=== PATIENT | female | born 1965 | race Caucasian/White ===

== ENCOUNTER → 2024-05-10 | Outpatient (CLI) | payer BC ==
[2024-05-10 11:00] LABS: WBC 7.05 X 10*3/uL (4.50-10.00)
[2024-05-10 11:01] LABS: Basophils # (A) 0.14 X 10*3/uL (0.00-0.10); Eosinophils # (A) 0.26 X 10*3/uL (0.04-0.35); Eosinophils % (A) 3.7 %; HGB 15.2 g/dL (12.0-15.0); Lymphocytes # (A) 2.62 X 10*3/uL (0.90-5.00); Lymphocytes % (A) 37.2 %; MCH 31.5 pg (27.0-32.0); MCV 95.2 FL (80.0-97.0); Mean Platelet Volume 10.1 FL (9.5-12.2); Monocytes # (A) 0.46 X 10*3/uL (0.20-1.00); Monocytes % (A) 6.5 %; NRBC Per 100 WBC 0 X 10*3/uL (0.00-0.01); Neutrophils # (A) 3.55 X 10*3/uL (1.80-7.70); Neutrophils % (A) 50.3 %; Platelet Count 263 X 10*3/uL (140-440); RBC 4.83 X 10*6/uL (4.10-5.20); RDW 11.5 % (11.5-14.5)
[2024-05-10 11:29] LABS: ALT 20 U/L (8-44); AST 19 U/L (13-35); Albumin 5.2 g/dL (3.8-4.9); Albumin/Globulin Ratio 2.08 Ratio (1.60-3.17); Alkaline Phosphatase 85 U/L (41-126); BUN/Creat Ratio 19.71 Ratio (12.00-20.00); Blood Urea Nitrogen 13.8 mg/dL (9.0-27.0); Chloride 101 mmol/L (96-109); Chol/HDL Ratio 4.62 Ratio; Globulin 2.5 g/dL (1.6-3.3); Glucose 112 mg/dL (70-110); LDL Cholesterol,Calculated 195.6 mg/dL (0.0-131.0); Potassium 4.2 mmol/L (3.5-5.5); Sodium 139 mmol/L (135-145); T4, Free (Free Thyroxine) 1.49 ng/dL (0.80-1.80); Total Bilirubin 0.3 mg/dL (0.3-1.2); Total Protein 7.7 g/dL (6.2-8.2)
== END | disposition home or self-care (01) ==
LOC: LABWHC1 07:20
PROVIDERS: ATTEND Family Medicine
DX: R53.83 Other fatigue (principal); R68.89 Other general symptoms and signs; R79.89 Other specified abnormal findings of blood chemistry
CPT/HCPCS: 36415; 80053; 80061; 83036; 84439; 84443; 85025

== ENCOUNTER → 2024-06-02 | Outpatient (CLI) | payer BC ==
--- NOTE | 2024-06-06 15:01 | MM ---
Reason for Exam: Screening (asymptomatic). Last mammogram was performed 1 year(s) and 3 month(s) ago. Patient History: Menarche at age 15. First Full-Term at age 28. Left ovary removed at age 50. Right ovary removed at age 50. Hysterectomy at age 50. Postmenopausal. 06/08/2013, Bilateral Reduction. Paternal aunt had breast cancer. Risk Values: Jane 5 year model risk: 1.4%. NCI Lifetime model risk: 8.9%. Prior Study Comparison: 06/05/2020 Bilateral Screening Mammogram, Jagdish Cole. 11/12/2021 Bilateral Screening Mammogram, Jagdish Cole. 02/24/2023 Bilateral Screening Mammogram, Jagdish Cole. Tissue Density: There are scattered areas of fibroglandular density. Findings: Analyzed By CAD. There is some distortion with calcification within the posterior right breast. No significant interval change. No suspicious groups of microcalcifications, spiculated or lobular masses, architectural distortion or other secondary signs of malignancy are mammographically apparent. Overall Assessment: Benign, BI-RAD 2 Management: Screening Mammogram of both breasts in 1 year. A negative mammogram report should not preclude additional follow up of suspicious palpable abnormalities. Patient should continue monthly self breast exam. A clinical breast exam by your physician is recommended on an annual basis and results should be correlated with mammographic findings. Note on Jane scores and lifetime risk: 1. A Jane score greater than 3% is considered moderate risk. If this is the case, consider specialist referral to assess eligibility for a risk reducing agent. 2. If overall lifetime risk for the development of breast cancer is 20% or higher, the patient may qualify for future screening with alternating mammogram and breast MRI. Electronically signed and approved by: Gallo Zayas D.O. Radiologis
== END | disposition home or self-care (01) ==
LOC: RADMAMWWP 09:07
PROVIDERS: ATTEND Family Medicine
DX: Z12.31 Encounter for screening mammogram for malignant neoplasm of breast (principal); Z78.0 Asymptomatic menopausal state; Z80.3 Family history of malignant neoplasm of breast; R92.323 Mammographic fibroglandular density, bilateral breasts
CPT/HCPCS: 77063; 77067

== ENCOUNTER → 2024-12-02 | Outpatient (CLI) | payer BC ==
[2024-12-02 10:37] LABS: ALT 40 U/L (8-44); AST 25 U/L (13-35); Chol/HDL Ratio 2.84 Ratio; LDL Cholesterol,Calculated 83.8 mg/dL (0.0-131.0)
== END | disposition home or self-care (01) ==
LOC: RADXRMAIN 06:49
PROVIDERS: ATTEND Family Medicine
DX: E78.5 Hyperlipidemia, unspecified (principal)
CPT/HCPCS: 36415; 80061; 84450; 84460

== ENCOUNTER 2025-01-11 15:36 | Emergency (ER) | payer BC ==
[2025-01-11 15:46] VITALS: TEMP 97.4
--- NOTE | 2025-01-11 16:22 | ED ---
General Adult HPI - General Chief complaint: Recheck/Abnormal Lab/Rx Stated complaint: htn Time Seen by Provider: 01/11/25 16:09 Source: patient, RN notes reviewed Mode of arrival: ambulatory Limitations: no limitations - History of Present Illness Initial comments: Patient is a 59-year-old female present to the emergency department with concern for high blood pressure. Patient has felt shaky today. Patient does have a headache which was gradual onset and has progressed over the past few hours. Headache is rated a 6/10. Patient has mild photophobia. Patient took her blood pressure several times and has been high. Patient was at urgent care and advised to take an additional dose of her losartan 50 however she did not do that. Blood pressure at home again with her cough was 160/92. - Related Data Home Medications Medication Instructions Recorded Confirmed Atorvastatin [Lipitor] 20 mg PO HS 01/11/25 01/11/25 Ergocalciferol (Vitamin D2) 1,250 mcg PO WE 01/11/25 01/11/25 [Drisdol (50,000 Iu)] Levothyroxine Sodium [Synthroid] 100 mcg PO [id number] 01/11/25 01/11/25 Levothyroxine Sodium [Synthroid] 150 mcg PO LOZA 01/11/25 01/11/25 Olmesartan [Benicar] 20 mg PO DAILY 01/11/25 01/11/25 Allergies Allergy/AdvReac Type Severity Reaction Status Date / Time cefuroxime [From Ceftin] AdvReac Rash/Hives Verified 01/11/25 17:45 codeine AdvReac Nausea & Verified 01/11/25 17:45 Vomiting Review of Systems ROS Statement: Those systems with pertinent positive or pertinent negative responses have been documented in the HPI. ROS Other: All systems not noted in ROS Statement are negative. Constitutional: Denies: fever Eyes: Denies: eye pain ENT: Denies: ear pain Respiratory: Denies: cough Cardiovascular: Denies: chest pain Endocrine: Denies: fatigue Gastrointestinal: Denies: abdominal pain Neurological: Reports: as per HPI, headache. Denies: weakness Past Medical History Past Medical History: Hyperlipidemia, Hypertension, Thyroid Disorder Additional Past Medical History / Comment(s): heart murmur History of Any Multi-Drug Resistant Organisms: None Reported Past Surgical History: Breast Surgery, Cholecystectomy, Hysterectomy, Tonsillectomy Past Psychological History: No Psychological Hx Reported Smoking Status: Never smoker Past Alcohol Use History: Occasional Past Drug Use History: None Reported General Exam Limitations: no limitations General appearance: alert, in no apparent distress Head exam: Present: atraumatic, normocephalic Eye exam: Present: normal appearance, PERRL, EOMI ENT exam: Present: normal oropharynx Neck exam: Present: normal inspection Respiratory exam: Present: normal lung sounds bilaterally Cardiovascular Exam: Present: regular rate, normal rhythm, normal heart sounds Expanded Peripheral pulses: 2+: Radial (R), Radial (L), Posterior Tibialis (R), Posterior Tibialis (L) GI/Abdominal exam: Present: soft. Absent: tenderness Extremities exam: Present: normal inspection. Absent: pedal edema, calf tenderness Neurological exam: Present: alert, CN II-XII intact. Absent: motor sensory deficit Expanded Neurological exam: Present: protecting the airway Speech: Present: fluid speech Cranial nerves: EOM's Intact: Normal Sensory exam: Upper Extremity Light Touch: Normal, Lower Extremity Light Touch: Normal Motor strength exam: RUE: 5, LUE: 5, RLE: 5, LLE: 5 Eye Response: (4) open spontaneously Motor Response: (6) obeys commands Verbal Response: (5) oriented Psychiatric exam: Present: normal affect, normal mood Skin exam: Present: normal color Course Vital Signs 01/11/25 01/11/25 01/11/25 15:41 16:46 17:36 Temperature 97.4 F L Pulse Rate 82 74 85 Respiratory 18 16 18 Rate Blood Pressure 191/113 141/104 144/104 O2 Sat by Pulse 98 97 98 Oximetry 01/11/25 18:00 Temperature Pulse Rate 68 Respiratory 16 Rate Blood Pressure 149/99 O2 Sat by Pulse 99 Oximetry EKG Findings - EKG Results: EKG: interpreted by ERMD, sinus rhythm, normal axis, normal QRS, normal ST/T Medical Decision Making - Medical Decision Making Was pt. sent in by a medical professional or institution (Dr. PA, RESOURCE MANAGEMENT PLANNER, urgent care, hospital, or shelter...) When possible be specific @ -Patient presented after urgent care Did you speak to anyone other than the patient for history (EMS, parent, family, police, friend...)? What history was obtained from this source @ -No Did you review nursing and triage notes (agree or disagree)? Why? @ -I reviewed and agree with nursing and triage notes Were old charts reviewed (outside hosp., previous admission, EMS record, old EKG, old radiological studies, urgent care reports/EKG's, shelter records)? Report findings @ -No old charts were reviewed Differential Diagnosis (chest pain, altered mental status, abdominal pain women, abdominal pain men, vaginal bleeding, weakness, fever, dyspnea, syncope, he adache, dizziness, GI bleed, back pain, seizure, CVA, palpatations, mental health, musculoskeletal)? @ -Differential Dizziness: Benign paroxysmal positional Vertigo, Meniere's disease, otitis media, acoustic neuroma, vertebrobasilar insufficiency, cerebellar stroke, encephalitis, hypovolemic, arrhythmia, coronary artery syndrome, anemia, this is not meant to be an all-inclusive list EKG interpreted by me (3pts min.). @ -As above X-rays interpreted by me (1pt min.). @ -Chest x-ray shows no acute process CT interpreted by me (1pt min.). @ -None done U/S interpreted by me (1pt. min.). @ -None done What testing was considered but not performed or refused? (CT, X-rays, U/S, labs)? Why? @ -None What meds were considered but not given or refused? Why? @ -None Did you discuss the management of the patient with other professionals (professionals i.e. , PA, RESOURCE MANAGEMENT PLANNER, lab, RT, psych nurse, sexual assault social worker, superintendent pier, teacher, medical laboratory technical officer, watch case polisher)? Give summary @ -No Was smoking cessation discussed for >3mins.? @ -No Was critical care preformed (if so, how long)? @ -No Were there social determinants of health that impacted care today? How? (Homelessness, low income, unemployed, alcoholism, drug addiction, transportation, low edu. Level, literacy, decrease access to med. care, custodial, rehab)? @ -No Was there de-escalation of care discussed even if they declined (Discuss DNR or withdrawal of care, Hospice)? DNR status @ -No What co-morbidities impacted this encounter? (DM, HTN, Smoking, COPD, CAD, Cancer, CVA, ARF, Chemo, Hep., AIDS, mental health diagnosis, sleep apnea, mor bid obesity)? @ -History of hypertension Was patient admitted / discharged? Hospital course, mention meds given and route, prescriptions, significant lab abnormalities, going to OR and other pertinent info. @ -Patient presents with hypertension and had some shakiness earlier. Patient felt better after Ativan however blood pressure remains somewhat elevated. Patient given 1 dose of 1.25 Vasotec with repeat blood pressure 106/91. Patient remained symptom-free on reevaluation. Patient and family updated. Undiagnosed new problem with uncertain prognosis? @ -No Drug Therapy requiring intensive monitoring for toxicity (Heparin, Nitro, Insulin, Cardizem)? @ -No Were any procedures done? @ -No Diagnosis/symptom? @ -Hypertension Acute, or Chronic, or Acute on Chronic? @ -Acute on chronic Uncomplicated (without systemic symptoms) or Complicated (systemic symptoms)? @ -Default Side effects of treatment? @ -No Exacerbation, Progression, or Severe Exacerbation? @ -No Poses a threat to life or bodily function? How? (Chest pain, [place], [place], pneumonia, PE, COPD, DKA, ARF, appy, cholecystitis, CVA, Diverticulitis, Homicidal, Suicidal, threat to staff... and all critical care pts) @ -No - Lab Data Result diagrams: 01/11/25 16:25 01/11/25 16:25 Lab Results 01/11/25 01/11/25 01/11/25 Range/Units 16:25 16:25 16:25 WBC 9.0 (3.8-10.6) k/uL RBC 4.76 (3.80-5.40) m/uL Hgb 14.6 (11.4-16.0) gm/dL Hct 45.2 (34.0-46.0) % MCV 95.0 (80.0-100.0) fL MCH 30.7 (25.0-35.0) pg MCHC 32.3 (31.0-37.0) g/dL RDW 11.9 (11.5-15.5) % Plt Count 261 (150-450) k/uL MPV 7.0 Neutrophils % 62 % Lymphocytes % 27 % Monocytes % 5 % Eosinophils % 4 % Basophils % 1 % Neutrophils # 5.6 (1.3-7.7) k/uL Lymphocytes # 2.4 (1.0-4.8) k/uL Monocytes # 0.4 (0-1.0) k/uL Eosinophils # 0.3 (0-0.7) k/uL Basophils # 0.1 (0-0.2) k/uL PT 10.7 (10.0-12.5) sec INR 1.0 (<1.2) Sodium 139 (137-145) mmol/L Potassium 4.0 (3.5-5.1) mmol/L Chloride 102 (98-107) mmol/L Carbon Dioxide 26 (22-30) mmol/L Anion Gap 11 mmol/L BUN 19 H (7-17) mg/dL Creatinine 0.69 (0.52-1.04) mg/dL Est GFR (CKD-EPI)AfAm >90 (>60 ml/min/1.73 sqM) Est GFR (CKD-EPI)NonAf >90 (>60 ml/min/1.73 sqM) Glucose 92 (74-99) mg/dL Calcium 10.1 (8.4-10.2) mg/dL Magnesium 1.9 (1.6-2.3) mg/dL Total Bilirubin 0.5 (0.2-1.3) mg/dL AST 34 (14-36) U/L ALT 42 H (4-34) U/L Alkaline Phosphatase 92 (38-126) U/L Total Protein 7.8 (6.3-8.2) g/dL Albumin 4.9 (3.5-5.0) g/dL Disposition Clinical Impression: Hypertension Disposition: HOME SELF-CARE Condition: Stable Instructions (If sedation given, give patient instructions): Hypertension (ED) Additional Instructions: Please follow-up with primary care physician in the next couple of days for recheck. Local providers numbers provided. If an hour and a half after your original medication your blood pressure remains greater than 180/92 you may take an additional one half dose of your losartan. Return for uncontrolled blood pressure, chest pain, weakness, worsening or changing symptoms or other concerns. Is patient prescribed a controlled substance at d/c from ED?: No Referrals: Lala Melgoza DO [Primary Care Provider] - 1-2 days Forms: Area PCPs Time of Disposition: 19:26
[2025-01-11 16:36] LABS: Basophils # (A) 0.1 k/uL (0-0.2); Basophils % (A) 1 %; Eosinophils # (A) 0.3 k/uL (0-0.7); Eosinophils % (A) 4 %; HCT 45.2 % (34.0-46.0); HGB 14.6 gm/dL (11.4-16.0); Lymphocytes # (A) 2.4 k/uL (1.0-4.8); Lymphocytes % (A) 27 %; MCH 30.7 pg (25.0-35.0); MCHC 32.3 g/dL (31.0-37.0); Monocytes # (A) 0.4 k/uL (0-1.0); Monocytes % (A) 5 %; Neutrophils # (A) 5.6 k/uL (1.3-7.7); Neutrophils % (A) 62 %; Platelet Count 261 k/uL (150-450); RBC 4.76 m/uL (3.80-5.40); RDW 11.9 % (11.5-15.5)
[2025-01-11 16:41] LABS: Prothrombin Time 10.7 sec (10.0-12.5)
--- NOTE | 2025-01-11 16:41 | XR ---
EXAMINATION TYPE: XR chest 2V DATE OF EXAM: 01/11/2025 4:35 PM COMPARISON: None TECHNIQUE: XR chest 2V Frontal and lateral views of the chest. CLINICAL INDICATION:Female, 59 years old with history of htn; FINDINGS: Lungs/Pleura: There is no evidence of pleural effusion, focal consolidation, or pneumothorax. Pulmonary vascularity: Unremarkable. Heart/mediastinum: Cardiomediastinal silhouette is unremarkable. Musculoskeletal: No acute osseous pathology. Other: Surgical clips in the upper abdomen. IMPRESSION: No acute cardiopulmonary disease/process. [facility], , 01/11/2025 4:38 PM
[2025-01-11] MEDS: LORazepam 2 MG/ML INJ IV STA (16:44)
[2025-01-11 16:56] LABS: ALT 42 U/L (4-34); AST 34 U/L (14-36); African American GFR (CKD) >90 (>60 ml/min/1.73 sqM); Albumin 4.9 g/dL (3.5-5.0); Alkaline Phosphatase 92 U/L (38-126); Anion Gap 11 mmol/L; Blood Urea Nitrogen 19 mg/dL (7-17); Calcium 10.1 mg/dL (8.4-10.2); Carbon Dioxide 26 mmol/L (22-30); Chloride 102 mmol/L (98-107); Glucose 92 mg/dL (74-99); Magnesium 1.9 mg/dL (1.6-2.3); Non-African American GFR(CKD) >90 (>60 ml/min/1.73 sqM); Sodium 139 mmol/L (137-145); Total Bilirubin 0.5 mg/dL (0.2-1.3); Total Protein 7.8 g/dL (6.3-8.2)
[2025-01-11] MEDS: ENALAPRILAT 1.25 MG/ML 1 ML VIAL IVP STA (18:52)
[2025-01-11 19:43] VITALS: BP 135/96; PULSE 100; RESP 18
== END 2025-01-11 19:43 | disposition home or self-care (01) ==
LOC: EC 15:36
DX: I10 Essential (primary) hypertension (principal); Z79.899 Other long term (current) drug therapy; Z88.1 Allergy status to other antibiotic agents; Z88.5 Allergy status to narcotic agent
CPT/HCPCS: 36415; 93005; 80053; 83735; 85025; 85610; 71046; 99284; 96374; 96375; J2060

== ENCOUNTER → 2025-06-02 | Outpatient (CLI) | payer BC ==
[2025-06-02 10:22] LABS: Basophils # (A) 0.16 X 10*3/uL (0.00-0.10); Basophils % (A) 1.7 %; Eosinophils # (A) 0.38 X 10*3/uL (0.04-0.35); Eosinophils % (A) 4.1 %; HCT 43.0 % (37.2-46.3); HGB 14.1 g/dL (12.0-15.0); Immature Grans, Automated 0.20 %; Lymphocytes # (A) 2.72 X 10*3/uL (0.90-5.00); Lymphocytes % (A) 29.7 %; MCH 31.0 pg (27.0-32.0); MCHC 32.8 g/dL (32.0-37.0); MCV 94.5 FL (80.0-97.0); Monocytes # (A) 0.62 X 10*3/uL (0.20-1.00); Monocytes % (A) 6.8 %; NRBC Per 100 WBC 0 X 10*3/uL (0.00-0.01); Neutrophils # (A) 5.27 X 10*3/uL (1.80-7.70); Neutrophils % (A) 57.5 %; Platelet Count 252 X 10*3/uL (140-440); RBC 4.55 X 10*6/uL (4.10-5.20); RDW 11.5 % (11.5-14.5); WBC 9.17 X 10*3/uL (4.50-10.00)
[2025-06-02 15:23] LABS: ALT 45 U/L (8-44); AST 33 U/L (13-35); Albumin 4.8 g/dL (3.8-4.9); Albumin/Globulin Ratio 2.18 Ratio (1.60-3.17); Alkaline Phosphatase 99 U/L (41-126); Anion Gap 11.70 mmol/L (4.00-12.00); BUN/Creat Ratio 17.57 Ratio (12.00-20.00); Blood Urea Nitrogen 12.3 mg/dL (9.0-27.0); Calcium 9.5 mg/dL (8.7-10.3); Carbon Dioxide 25.3 mmol/L (21.6-31.8); Chloride 105 mmol/L (96-109); Cholesterol 174.00 mg/dL (0.00-200.00); Globulin 2.2 g/dL (1.6-3.3); Glucose 117 mg/dL (70-110); HDL Cholesterol 55.70 mg/dL (40.00-60.00); LDL Cholesterol,Calculated 97.9 mg/dL (0.0-131.0); Potassium 4.4 mmol/L (3.5-5.5); Sodium 142 mmol/L (135-145); T4, Free (Free Thyroxine) 1.43 ng/dL (0.80-1.80); Total Protein 7.0 g/dL (6.2-8.2); Triglycerides 102.00 mg/dL (0.00-149.00); VLDL Calculation 20.40 mg/dL (5.00-40.00)
== END | disposition home or self-care (01) ==
LOC: LABWHC1 07:23
PROVIDERS: ATTEND Family Medicine
DX: R68.89 Other general symptoms and signs (principal); R79.89 Other specified abnormal findings of blood chemistry; R53.83 Other fatigue
CPT/HCPCS: 36415; 80053; 80061; 83036; 84439; 84443; 85025